=== PATIENT | male | born 1980 | race Caucasian/White ===

== ENCOUNTER → 2018-05-24 14:51 | Outpatient (CLI) | payer BC, SELFPAY ==
[2018-05-24 14:45] VITALS: BMI 20.2
--- NOTE | 2018-05-24 14:53 | RAD_ITS ---
STUDY: X-RAY CHEST REASON FOR EXAM: Male, 37 years old. Shortness of breath, cough and chest pain. TECHNIQUE: PA and lateral views of the chest. COMPARISON: Comparison is made with prior study July 05, 2015. FINDINGS: Hyperinflation. Stable scarring in both upper lobes with retraction of the antoinette bilaterally. The increased bronchovascular markings bilaterally suggestive of a Normal size heart. Normal mediastinum and antoinette. Normal visualized pulmonary arteries. Normal visualized aortic arch and descending thoracic aorta. Normal visualized thoracic spine. Normal visualized ribs, clavicles, and shoulders. There is no demonstrated abnormality of the visualized soft tissue structures of the upper abdomen. RAD/Chest PA and Lateral IMPRESSION: Stable findings consistent with upper lobe scarring bilaterally with retraction of the antoinette. Electronically Signed: Deangelo Marcano MD at 15:22 EST , Service support ,
== END ==
PROVIDERS: Referring Provider Physician Assistant Surgical; Visit Provider Physician Assistant Surgical
DX: R05 Cough (principal)
CPT/HCPCS: 71046

== ENCOUNTER 2018-10-12 23:07 | Emergency (ER) | payer BC, SELFPAY ==
[2018-05-24 14:45] VITALS: BMI 20.2
[2018-10-12 23:09] VITALS: BP 114/40; PULSE 101; RESP 18; TEMP 36.9; O2SAT 100; BMI 19.5
--- NOTE | 2018-10-12 23:25 | EKG12_ITS ---
Test Reason : CP Blood Pressure : / mmHG Vent. Rate : 092 BPM Atrial Rate : 092 BPM P-R Int : 152 ms QRS Dur : 086 ms QT Int : 342 ms P-R-T Axes : 083 089 080 degrees QTc Int : 422 ms Poor data quality, interpretation may be adversely affected Normal sinus rhythm Normal ECG Confirmed by AMBER MUÑOZ, MARY ([id number]), editor publications ROHITH BILLS ([id number] on 10/15/2018 11:57:22 AM Referred By: SVETLANA Confirmed By:MARY CLARK MD
[2018-10-12 23:33] VITALS: PULSE 88; RESP 16
[2018-10-12] MEDS: Ipratropium/Albuterol Sulfate 3 ML AMPUL.NEB INHALATION (23:33)
[2018-10-12] MEDS: Albuterol 2.5 MG/3 ML VIAL.NEB. INHALATION (23:33)
--- NOTE | 2018-10-12 23:35 | RAD_ITS ---
HISTORY: PT C/O COUGH,NIGHT SWEATS, AND CHEST PAIN WITH PAIN RADIATING DOWN RIGHT ARM EXAM: XR Chest 2 Views: COMPARISON: May 24, 2018 FINDINGS: # of images incl. paperwork: 2 Fibrotic lung disease greatest within the lung apices persists. Pulmonary hyperexpansion with possibly of lower lung pulmonary vascularity suggests obstructive lung disease and probable emphysema. Enlargement of central pulmonary artery suggest chronic pulmonary artery hypertension Heart is not enlarged. Bones are normal. Pulmonary vascularity is distinct. No effusions. RAD/Chest PA and Lateral IMPRESSION: Fibrotic lung disease greatest within the apices with pulmonary hyperexpansion suggestive of obstructive lung disease. Enlargement central pulmonary arteries consistent with pulmonary artery hypertension, likely related to chronic obstructive lung disease.. at 0018 Reported and signed by: Jamaal Prince MD Electronically Signed: Jamaal Prince MD at 0:17 EDT Tel , Service support ,
[2018-10-12 23:36] VITALS: O2SAT 96
[2018-10-12] MEDS: Aspirin 81 MG TAB.CHEW 324 MG PO (23:39)
[2018-10-12 23:59] LABS: Absolute Lymphocyte Count 0.89 X10^3/ul (0.83-4.51); Absolute Neutrophil Count 12.3 X10^3/uL (2.0-7.7); Basophil# 0.04 X10^3/uL; Basophil% 0.3 % (0-1); Eosinophil# 0.09 X10^3/uL; Eosinophils% 0.6 % (0-5); Hematocrit 41.5 % (40-54); Hemoglobin 14.3 g/dl (13.0-16.5); Lymphocyte # 0.89 X10^3/ul (4.0); Lymphocyte % 6.2 % (19-41); Mean Corp Hgb Conc 34.5 g/gl (32-36); Mean Corpuscular Hgb 30.5 pg (27.0-32.0); Mean Corpuscular Volume 88.5 fL (80-94); Mean Platelet Vol. 10.4 fl (6.2-12.0); Monocyte# 0.92 X10^3/uL; Monocyte% 6.4 % (0-10); Neutrophil # 12.31 X10^3/uL (2.7-7.7); Neutrophil % 86.4 % (47-70); Platelet Count 234 K/mm3 (150-450); RBC Distribution Width CV 12.5 % (11.6-14.6); RBC Distribution Width SD 39.8 fl (35.1-43.9); Red Blood Count 4.69 M/mm3 (4.6-6.2); White Blood Count 14.3 K/mm3 (4.4-11.0)
[2018-10-13 00:09] LABS: Anion Gap 3 (5-15); BUN 14 mg/dL (7-18); BUN/Creat Ratio 16.4 RATIO (10-20); Chloride 104 mmol/L (98-107); Creatinine, Serum 0.86 mg/dL (0.70-1.30); EST Glomerular Filtration Rate 105 mL/min (>60); Est Glom Filt Rate - Afr Amer 127 mL/min (>60); Estimated Creatinine Clearance 108.53 ml/min; Glucose 102 mg/dL (74-106); Potassium 3.5 mmol/L (3.5-5.1); Sodium Level 136 mmol/L (136-145)
[2018-10-13 00:17] LABS: POSITIVE COUNT NO; POSITIVE DIFFERENTIAL NO; POSITIVE MORPHOLOGY NO
--- NOTE | 2018-10-13 00:24 | EKG12_ITS ---
Test Reason : REPEAT EKG Blood Pressure : / mmHG Vent. Rate : 091 BPM Atrial Rate : 091 BPM P-R Int : 132 ms QRS Dur : 088 ms QT Int : 344 ms P-R-T Axes : 081 089 080 degrees QTc Int : 423 ms Normal sinus rhythm Normal ECG Confirmed by AMBER MUÑOZ, MARY ([id number]), technical editor ROHITH BILLS ([id number]) on 10/15/2018 11:56:17 AM Referred By: SVETLANA Confirmed By:MARY CLARK MD
[2018-10-13] MEDS: MethylPREDNISolone 125 MG/2 ML Vial IV (00:49)
[2018-10-13 00:51] VITALS: BP 107/72; PULSE 93; RESP 14; TEMP 36.9; O2SAT 94
--- NOTE | 2018-10-13 01:22 | ED.RN ---
PER DR. MOODY SEPSIS SCREEN CAN BE COMPLETED.
[2018-10-13 01:23] VITALS: BP 97/60; PULSE 89; RESP 24; O2SAT 94
[2018-10-13 02:07] VITALS: BP 117/66; PULSE 85; RESP 21; O2SAT 95
--- NOTE | 2018-10-13 02:44 | ED.VISSUMM ---
- ER Visit Summary Date of Service: 10/13/18 Chief Complaint: Chest pain History of Present Illness: The patient is a 38 M who presents with chest pain. This began about 1 hour ago. He describes it as throbbing. It was 8 out of 10 at home but has improved and he currently rates it as 4 out of 10. He also reports a recent URI or flulike illness. He reports chills and sweats but has not had a fever. He also complains of chest congestion, rhinorrhea, productive cough. He is had diarrhea for about 1 week. He has had some intermittent chest discomfort during this time however 1 hour ago developed more severe chest pain. It radiated to his right shoulder and his right arm felt numb. No fevers. No vomiting. He is a smoker but denies history of diabetes, hypertension, hyperlipidemia. There is no family history of coronary artery disease. He does have a history of sarcoidosis. Physical Examination: Heart rate 101 vitals otherwise normal Moist mucous membranes Heart regular rate and rhythm Patient has scattered expiratory wheezing but he is in no respiratory distress, able to speak in full sentences Alert Skin warm and dry Test Results: EKG shows sinus rhythm at a rate of 92. Labs notable for white count 14.3. Troponin is negative. Chest x-ray shows fibrotic lung disease. Repeat EKG unchanged showing normal sinus rhythm at a rate of 91. Repeat troponin remains negative. Emergency Department Course and Treatment: Patient was given albuterol and Atrovent aerosols. Work-up as above unremarkable. Patient's heart score is 2. JOSEPH risk score is 1. I feel he is low risk and that this is unlikely to be due to cardiac disease and is much more likely related to his pulmonary disease. He states he is supposed to be on prednisone but was lost to follow-up. He was given Solu-Medrol here. He will be placed on a prednisone burst. He was advised to follow-up with his primary care physician and understands to return for new or worsening symptoms. Patient agreeable to this plan. He was discharged. Treatment Plan: [] Disposition: Discharge Impression: Chest pain Sarcoidosis Bronchitis This note was generated with SamEnrico dictation software. It may contain incorrect words, spelling, and punctuation that were not noted in review of the chart prior to signing ED Disposition - Plan for ED Patient: Referrals: Care Physician,No Primary [Primary Care Provider] -
--- NOTE | 2018-10-13 02:47 | ED.DEP ---
ED Disposition - Plan for ED Patient: Instructions: Acute Bronchitis Prescriptions: predniSONE tablet 60 mg PO DAILY #15 tab Prescription Printed Referrals: Care Physician,No Primary [Primary Care Provider] -
[2018-10-13 02:52] VITALS: BP 113/75; PULSE 90; RESP 18; O2SAT 95
== END 2018-10-13 02:52 | disposition home or self-care (01) ==
PROVIDERS: Emergency Provider Emergency Medicine
DX: R07.9 Chest pain, unspecified (principal); J40 Bronchitis, not specified as acute or chronic; D86.9 Sarcoidosis, unspecified; J98.4 Other disorders of lung; R19.7 Diarrhea, unspecified; J84.10 Pulmonary fibrosis, unspecified; F17.200 Nicotine dependence, unspecified, uncomplicated
CPT/HCPCS: 71046; 80048; 83605; 84484; 85025; 93005; 94640; 99284; A4216

== ENCOUNTER 2019-10-15 11:05 | Observation (INO) | payer BC, SELFPAY ==
[2019-07-21 12:25] VITALS: BMI 19.5
[2019-10-15] VITALS (10 sets, daily range): BP systolic 103–153; BP diastolic 70–109; PULSE 75–97; RESP 10–20; TEMP 36.5–36.8; O2SAT 84–99; BMI 20.1
--- NOTE | 2019-10-15 11:39 | RAD_ITS ---
STUDY: X-RAY CHEST REASON FOR EXAM: Male, 39 years old. DYSPNEA TECHNIQUE: Single AP portable view of the chest. COMPARISON: Comparison is made with prior study dated October 12, 2018. FINDINGS: EKG electrodes are seen. Was again, there is evidence of a increased markings with areas of confluence in the upper lobes worse on the left side. There is volume loss in the upper lobes as well. There has been improvement as compared to prior study. There is no demonstrated pleural abnormality. Normal size heart. Normal mediastinum and antoinette. Normal visualized pulmonary arteries. Normal visualized aortic arch and descending thoracic aorta. Normal visualized thoracic spine. Normal visualized ribs, clavicles, and shoulders. There is no demonstrated abnormality of the visualized soft tissue structures of the upper abdomen. RAD/Chest 1 View (Portable) IMPRESSION: Persistent increased markings in the upper lobes worse on the left side suggestive of a scarring although there has been improvement as compared to prior study. Volume loss in the upper lobes. Electronically Signed: Deangelo Marcano, at 12:44 EDT , Service support ,
--- NOTE | 2019-10-15 11:41 | CT_ITS ---
STUDY: CT SOFT TISSUE NECK WITH CONTRAST REASON FOR EXAM: Male, 39 years old. INCREASING SOB,PAIN IN SHOULDER BLADE SINCE SUNDAY, PRESSURE IN THROAT RADIATION DOSAGE (If Supplied By Facility): CTDIvol = ( 16.27 ) mGy, DLP = ( 508.09 ) mGycm TECHNIQUE: The patient was scanned in a multi-detector CT scanner. High resolution transaxial imaging was performed following intravenous administration of IV 100mL Isovue-370. Sagittal and coronal images were reconstructed. Individualized dose optimization techniques were used for this CT. COMPARISON: None. FINDINGS: There is evidence of scarring in the upper lobes with cystic changes suggestive of honeycombing.. There is evidence of a small left apical pneumothorax. Bullous changes are seen in the left lung apex. There is evidence of a 1.3 cm x 1.1 cm nodular density in the lateral aspect of the right upper lobe. Normal bilateral parotid glands. Normal bilateral handstitching machine collar feller spaces. Normal bilateral parapharyngeal spaces. Normal bilateral carotid spaces. Normal bilateral sublingual and submandibular glands and spaces. Normal visualized nasopharynx. Normal retropharyngeal space. Normal perivertebral space. Normal visualized bilateral faucial tonsils. The visualized tongue, tongue base and oropharynx are normal. The visualized cervical lymph nodes (levels I-) are within normal size limits, and maintain normal morphology. There is no demonstrated solid or cystic mass lesion. There is no abnormal contrast enhancement. Normal epiglottis, bilateral vallecula and hypopharynx. The pre-epiglottic and paraglottic adipose spaces are normal. Normal visualized bilateral piriform sinuses, aryepiglottic folds, vocal cords, and arytenoid-cricoid articulations. Normal subglottic trachea. Normal bilateral lobes of the thyroid gland. Normal visualized paranasal sinuses. Normal visualized cervical spine. CT/Soft Tissue Neck WITH Contrast IMPRESSION: Fibrotic changes in the upper lobes with scarring and cystic changes suggestive of chronic scarring. Small loculated pneumothorax in the upper left hemithorax. Findings suggestive of a 1.3 cm x 1.1 cm nodular density in the lateral aspect of the right upper lobe. Electronically Signed: Deangelo Marcano, at 12:48 EDT , Service support ,
--- NOTE | 2019-10-15 11:46 | ED.VISSUMM ---
- ER Visit Summary Date of Service: 10/15/19 Chief Complaint: Shortness of breath History of Present Illness: The patient is a 39 M who presents with shortness of breath that has been getting worse over the past 5 days. Patient states it is gradually gotten worse. Patient states nothing makes it worse. Patient states it is better with rest. Patient states he feels like his throat is tightening. Patient denies any fevers or chills. Patient denies any cough. Patient denies any chest pain. Patient admits to nausea but denies any vomiting. Patient states he has been using his inhaler with minimal relief. Physical Examination: Vital signs are stable. Patient is afebrile. Patient is in no acute distress. Oral mucosa is pink and moist. Oropharynx is clear. Airway is patent. Neck is supple. Trachea is midline. There is no JVD. Heart was regular rate and rhythm. Lungs showed diffuse expiratory wheezing. There is good respiratory effort noted. Abdomen is soft. Bowel sounds are normal. There is no tenderness. Cranial nerves II through XII are intact. There are no focal motor or sensory deficits. Test Results: Chest x-ray was obtained. There is a small loculated pneumothorax in the left upper lobe. A CT scan of the soft tissue neck was obtained since the patient was having pressure in his throat. There is no evidence of epiglottitis or soft tissue swelling. The apical pneumothorax was noted. CT scan of the chest was obtained. There is a 10 to 15% pneumothorax in the left upper lobe. There is also a small loculated pneumothorax in the left base. These were all interpreted by the radiologist and reviewed by myself. Emergency Department Course and Treatment: Patient was given a dose of morphine here. Patient was given a DuoNeb aerosol. Patient was placed on oxygen. Case was discussed with Dr. Dariel Willingham, general surgeon on-call. He will be in to evaluate the patient. Patient was advised and understands and is agreeable with the plan. All questions were answered. Disposition: Admit to hospital to the service of Dr. Willingham Impression: 1. Left pneumothorax This note was generated with Apmetrixation software. It may contain incorrect words, spelling, and punctuation that were not noted in review of the chart prior to signing ED Disposition - Plan for ED Patient: Disposition: Acute Care Hospital [facility] Diagnosis: Pneumothorax, left Referrals: Care Physician,No Primary [Primary Care Provider] -
[2019-10-15] MEDS: 0.9% Normal Saline 1,000 ML 1000 ML IV (11:49)
--- NOTE | 2019-10-15 11:53 | EKG12_ITS ---
Test Reason : SOB Blood Pressure : / mmHG Vent. Rate : 080 BPM Atrial Rate : 080 BPM P-R Int : 168 ms QRS Dur : 078 ms QT Int : 362 ms P-R-T Axes : 082 073 086 degrees QTc Int : 417 ms Sinus rhythm with marked sinus arrhythmia Low voltage QRS Cannot rule out Anterior infarct , age undetermined Abnormal ECG Confirmed by BARBIE LAU ([id number]), metropolitan editor ABRAHAM GEORGE ([id number]) on 10/20/2019 2:13:28 PM Referred By: SPRING/ELLEN Confirmed By:BARBIE LAU
[2019-10-15] MEDS: Ipratropium/Albuterol Sulfate 3 ML AMPUL.NEB INHALATION (11:55)
[2019-10-15 12:07] LABS: Absolute Neutrophil Count 6.4 X10^3/uL (2.0-7.7); Basophil# 0.09 X10^3/uL; Basophil% 0.9 % (0-1); Eosinophils% 5.2 % (0-5); Hematocrit 49.6 % (40-54); Hemoglobin 16.5 g/dL (13.0-16.5); Lymphocyte % 21.8 % (19-41); Mean Corp Hgb Conc 33.3 g/dL (32-36); Mean Corpuscular Hgb 31.4 pg (27.0-32.0); Mean Corpuscular Volume 94.3 fL (80-94); Mean Platelet Vol. 10.6 fl (6.2-12.0); Monocyte# 0.52 X10^3/uL; Monocyte% 5.4 % (0-10); NRBC Flagged by Analyzer 0 % (0-5); Neutrophil # 6.39 X10^3/uL (2.7-7.7); Neutrophil % 66.5 % (47-70); Platelet Count 313 K/mm3 (150-450); RBC Distribution Width CV 11.9 % (11.6-14.6); RBC Distribution Width SD 40.8 fl (35.1-43.9); Red Blood Count 5.26 M/mm3 (4.6-6.2); White Blood Count 9.6 K/mm3 (4.4-11.0)
[2019-10-15 12:17] LABS: Anion Gap 3 (5-15); BUN 8 mg/dL (7-18); BUN/Creat Ratio 9.4 RATIO (10-20); Calcium,Total 9.2 mg/dL (8.5-10.1); Chloride 104 mmol/L (98-107); Creatinine, Serum 0.85 mg/dL (0.70-1.30); EST Glomerular Filtration Rate 105 mL/min (>60); Est Glom Filt Rate - Afr Amer 128 mL/min (>60); Estimated Creatinine Clearance 111.94 ml/min; Glucose 105 mg/dL (74-106); Potassium 4.2 mmol/L (3.5-5.1); Sodium Level 139 mmol/L (136-145)
--- NOTE | 2019-10-15 12:39 | CT_ITS ---
STUDY: CT CHEST WITHOUT CONTRAST REASON FOR EXAM: Male, 39 years old. PNEUMOTHORAX, increasing SOB since Sunday RADIATION DOSAGE (If Supplied By Facility): CTDIvol = ( 7.77 ) mGy, DLP = ( 339.95 ) mGycm TECHNIQUE: Transaxial imaging was performed without the administration of intravenous contrast material. Multiplanar coronal and sagittal images were reformatted. Individualized dose optimization techniques were used for this CT. COMPARISON: Comparison is made with prior CT scan of the cervical region done earlier. FINDINGS: There is evidence of a left 10-15% pneumothorax. There is also evidence of a 3.8 cm x 3.1 cm bulla in the medial aspect of the left upper lobe. Loculated pneumothorax is also seen at the left lung base measuring 9.8 cm x 8.4 cm. There is evidence of extensive scarring in the upper lobes with areas of the bullous changes and bronchiectasis. There is evidence of a 1.8 cm x 1.2 cm dictated density anterior right upper lobe. This may represent a focal area of scarring although correlation with a PET scan is recommended. A similar appearing spiculated density is seen in the posterior aspect of the right upper lobe measuring 2.3 cm x 1.9 cm. There is no demonstrated pleural abnormality. Normal heart and pericardium. Normal mediastinum. Normal hilar regions. Normal unenhanced pulmonary arteries. Normal aorta arch and descending thoracic aorta. Normal osseous structures. There is no demonstrated abnormality of the visualized upper abdomen. CT/Chest without Contrast IMPRESSION: Left 10-50% pneumothorax with a loculation in the left lower lobe. Spiculated nodules in the right upper and left upper lobe as described. Correlation with PET scan is recommended. Extensive scarring in both upper lobes with bullous formation as well as bronchiectasis. Electronically Signed: Deangelo Marcano, at 13:25 EDT , Service support ,
[2019-10-15] MEDS: Morphine 4 MG/ML Syringe IV ×2 (12:54→18:04)
--- NOTE | 2019-10-15 13:45 | ED.VIS.CHEST ---
History of Present Illness Chief Complaint: Shortness of Breath Informant: Patient Past Medical History - Allergies and Home Meds Allergies/Adverse Reactions: Allergies acetaminophen [From Percocet] Allergy (Verified 10/15/19 11:05) Hives oxycodone HCl [From Percocet] Allergy (Verified 10/15/19 11:05) Hives Primary Care Physician: Care Physician,No Primary [Primary Care Provider] - Smoking Status: Current every day smoker Physical Exam Vital Signs/Narrative: Vital Signs Temp Pulse Resp BP Pulse Ox 10/15/19 13:10 85 10 L 134/109 H 98 10/15/19 12:40 90 16 132/92 H 97 10/15/19 11:57 90 12 96 10/15/19 11:06 97.7 F L 86 17 153/89 H 97 ED Disposition - Plan for ED Patient: Referrals: Care Physician,No Primary [Primary Care Provider] -
--- NOTE | 2019-10-15 15:12 | NURSING ---
DR Meme YU WILL BE IN LATER TODAY
--- NOTE | 2019-10-15 15:46 | NURSING ---
DR Meme YU IN ROOM
--- NOTE | 2019-10-15 16:50 | RAD_ITS ---
STUDY: X-RAY CHEST REASON FOR EXAM: Male, 39 years old. CHEST TUBE PLACEMENT TECHNIQUE: 1 view 4:51 PM COMPARISON: Prior chest radiograph of October 15, 2019 at 12:[address] exam of the same day. Prior chest radiographs of May 24, 2018 and July 05, 2015 FINDINGS: A small caliber chest tube terminates in the mid left thorax with a reduction in the pneumothorax which now measures 6 mm from the visceral to the parietal pleura in the axillary region of the left upper lung zone. Negative for pleural effusion. Stable chronic upper lung zone changes with hilar and upper lobe retraction. Normal size heart. Normal mediastinum and antoinette. Normal visualized pulmonary arteries. Normal visualized aortic arch and descending thoracic aorta. Normal visualized thoracic spine. Normal visualized ribs, clavicles, and shoulders. There is no demonstrated abnormality of the visualized soft tissue structures of the upper abdomen. RAD/Chest 1 View (Portable) IMPRESSION: Small caliber chest tube terminates in the mid left thorax with a substantial reduction in the pneumothorax. A minimal pneumothorax remains. Stable underlying chronic lung changes. Electronically Signed: Gracie Rios MD at 17:06 EDT , Service support ,
--- NOTE | 2019-10-15 17:07 | HP.PCM_ITS ---
Problem List (1) Pneumothorax, left Status: Acute History of Present Illness Date of Admission: 10/15/19 The patient is a 39 year old M scented to the emergency room with a 3 to 4-day history of shortness of breath. I was asked to assume care. He has evidence of emphysematous blebs bilaterally but has a left pneumothorax post apically and subpulmonic. He had a chest x-ray and a CT scan. There is area of scarring in the apical lobe in the left lower lobe was partially still inflated. I had asked for assistance from radiology for guidance and was instructed that privileges were not available. The patient does not have a primary care doctor. He occasionally sees Dr. Ari bello for his pulmonology needs but with a COVID-19 pandemic he has not been in follow-up. Was supposed to be on prednisone for treatment of his sarcoidosis. He has not been taking that for at least 3 to 4 months. He is a long-term cigarette smoker up to 2 packs/day. Currently he states he is smoking 1 to 3 cigarettes daily Past Medical History Medical History: Medical History (Last Reviewed 07/21/19 @ 12:26 by Luz Roa) Back pain M54.9 Chest pain R07.9 Migraines G43.909 SOB (shortness of breath) R06.02 Sarcoidosis D86.9 Allergies acetaminophen [From Percocet] Allergy (Verified 10/15/19 11:05) Hives oxycodone HCl [From Percocet] Allergy (Verified 10/15/19 11:05) Hives Home Medications: Ambulatory Orders Medication Instructions Recorded Ipratropium/Albuterol Respimat 1 puff INHALATION PRN PRN 10/15/19 [Combivent Respimat Inhal [place]] Surgical History: - - Previous left clavicular fracture ORIF Smoking Status: Current every day smoker Review of Systems Constitutional: Denies: Chills, Fever, Night Sweats Cardiovascular: Reports: Chest Pain Respiratory: Reports: Shortness of Breath. Denies: Cough Gastrointestinal: Denies: Abdominal Pain, Melena Psychiatric: Reports: Anxiety Endocrine: Denies: Change in Body Habitus Hematologic/ Lymphatic: Denies: Adenopathy VTE Information - Inpt Only VTE Present on Admission: No Patient Problems: Active and Suspected Problems (Last Reviewed 07/21/19 @ 12:26 by Luz Roa) Pneumothorax, left (Acute) - Physical Exam Vitals/I&O's: Vital Signs Temp Pulse Resp BP Pulse Ox 97.7 F L 97 16 116/90 H 99 10/15/19 11:06 10/15/19 16:00 10/15/19 16:00 10/15/19 16:00 10/15/19 16:00 Oxygen Flow Rate (L/min) 2 Oxygen Delivery Method Nasal Cannula Weight: 152 lb 8.958 oz Body Mass Index (BMI) 20.1 Intake and Output for Last 24 Hours 10/13/19 10/14/19 10/15/19 23:59 23:59 23:59 Intake Total 1000 / 999 Balance 1000 / 999 General: Alert, Oriented x3, Cooperative, No apparent distress HEENT: Atraumatic Oral: Moist Mucosa Neck: Trachea Midline Lungs: Clear to auscultation, - - Poor respiratory excursion bilaterally. Somewhat distant breath sounds bilaterally. Markedly increased anterior posterior diameter of the chest Cardiovascular: Regular rate, Regular Rhythm Abdomen: Bowel Sounds Present, Soft, Non Tender, Non-Distended Extremities: No Calf Tenderness Skin: No rashes Neurological: - - Normal cognition Psych/Mental Status: Normal Affect, Anxious Laboratory Results 10/15/19 11:08: WBC 9.6, RBC 5.26, Hgb 16.5, Hct 49.6, MCV 94.3 H, MCH 31.4, MCHC 33.3, RDW Std Deviation 40.8, RDW Coeff of Sue 11.9, Plt Count 313, MPV 10.6, Immature Gran % (Auto) 0.200, Neut % (Auto) 66.5, Lymph % (Auto) 21.8, Howard % (Auto) 5.4, Eos % (Auto) 5.2 H, Baso % (Auto) 0.9, Absolute Neuts (auto) 6.4, Absolute Lymphs (auto) 2.10, Nucleated RBC % 0 10/15/19 11:08: Sodium 139, Potassium 4.2, Chloride 104, Carbon Dioxide 32.0, Anion Gap 3 L, BUN 8, Creatinine 0.85, Estim Creat Clear Calc 111.94, Est GFR (MDRD) Af Amer 128, Est GFR (MDRD) Non-Af 105, BUN/Creatinine Ratio 9.4 L, Glucose 105, Calcium 9.2 Current Medications Acetaminophen (Tylenol) 650 mg PO Q6H PRN PRN PRN Reason: Pain Score 1-10/10 Morphine Sulfate () 1 - 2 mg IV Q1H PRN PRN PRN Reason: Pain Score 1-10/10 Non-Formulary Medication (Ipratropium/Albuterol Respimat) 1 puff inhalation PRN PRN PRN Reason: SOB &/OR WHEEZING Ondansetron HCl (Zofran) 4 mg IV Q8H PRN PRN PRN Reason: NAUSEA Assessment/Plan All Active Problems (Last Reviewed 07/21/19 @ 12:26 by Luz Roa) Pneumothorax, left (Acute) Acute bronchitis (Acute) Hx of sarcoidosis (Acute) Significant changes of COPD with emphysematous blebs bilaterally. Left apical pneumothorax with apical adhesions and subpulmonic pneumothorax. Symptomatic patient. I recommend to him tube thoracostomy. The patient is additionally aware of the technique, benefit, risk, alternatives. He is aware that definitive treatment may be required in the form of thoracoscopy with bleb resection and pleurodesis. He is aware that referral to a tertiary center might be required for this. He has had an opportunity to ask and have questions answered. I recommended that in the emergency room I proceed with tube placement. He concurred. Subsequently plan admission for ongoing observation Because he has not been taking his prednisone for 3 to 4 months at this moment I will not immediately reinitiate it. The patient will definitively need to follow-up with pulmonology or primary care at discharge. Dariel Willingham M.D., F.A.C.S. Procedure Criteria COVID Risk Discussion: The patient is aware that emergency placement of a left tube thoracostomy is indicated. He is aware of the COVID-19 pandemic. He is aware of a low local incidence. He is aware that I am definitively recommending urgently proceeding for his wellbeing. Dariel Willingham M.D., F.A.C.S.
--- NOTE | 2019-10-15 17:13 | PCM.OPRPT ---
Problem List (1) Pneumothorax, left Status: Acute Report of Operation Date of Procedure: 10/15/19 Pre-Operative Diagnosis: Spontaneous left pneumothorax with multiple blebs Post-Operative Diagnosis: Same Surgery/Procedure Performed:: Ultrasound-guided left tube thoracostomy with Arrow kit pneumothorax tube Description of Surgical Findings:: Timeout and informed consent was obtained. In the emergency room I had the patient in a 45 degree head of bed elevation. I performed ultrasound of both anterior lateral chest. I add identified a site left anterior axillary line in the inferior portion of the axilla where I thought that there was no return reflection from the lung. I marked that area. I then cleansed the skin with chlorhexidine. I used 1% lidocaine as a local anesthetic and a total of 10 cc was used. Using a 25-gauge needle I carefully anesthetized the skin and then over the rib space carefully used a 25-gauge needle until I was able to feel an poke through the pleura immediately got an air return. I continue to inject local at that spot. I made a small transverse incision and then used the needle catheter device as a unit and carefully inserted it over the rib space into the pleura immediately getting air not advancing needle any further but carefully advancing the catheter. I then secured the catheter to the skin with 2-0 silk. It was then connected to a thoraco-seal device with 20 cm of suction under water. He tolerated the procedure well. Vaseline gauze followed by 4 x 4's followed by secured tape dressing was applied. The connections were securely taped. He was immediately relieved to some of the shortness of breath. He tolerated the procedure very well. A stat portable chest x-ray is ordered. He will subsequently be admitted for ongoing care. Specimens none. Drains the chest tube. Blood loss minimal. Dariel Willingham M.D., F.A.C.S. Type of Anesthesia:: Local
--- NOTE | 2019-10-15 17:17 | PCM.PN.BLA ---
Progress Note Small caliber left chest tube is in adequate position with majority resolution of pneumothorax. I will except the positioning of the tube as no iatrogenic trauma has occurred. We will keep it to 20 cm of suction Dariel Willingham M.D., F.A.C.S. STROKE Vital Signs/Narrative: Vital Signs Pulse Resp BP Pulse Ox 10/15/19 16:00 97 16 116/90 H 99 10/15/19 15:29 81 15 116/84 H 99 10/15/19 14:52 76 16 107/81 H 98
--- NOTE | 2019-10-15 17:39 | NURSING ---
MED SURG OBS R CEBUL LEFT PNEUMONTHORAX
[2019-10-15] MEDS: 0.9% Saline Lock 10 ML Syringe IV (19:46)
[2019-10-15] MEDS: Ondansetron 4 MG/2 ML Vial IV (19:46)
[2019-10-16] VITALS (10 sets, daily range): BP systolic 92–140; BP diastolic 56–86; PULSE 84–97; RESP 12–24; TEMP 36.7–37.2; O2SAT 92–98
[2019-10-16] MEDS: Ipratropium/Albuterol Sulfate 3 ML AMPUL.NEB INHALATION ×3 (00:15→14:08)
--- NOTE | 2019-10-16 00:29 | NURSING ---
At approximately 11:45pm patient called out, this RN went into patients room and patient was found to be sitting at the side fo the bed without his oxygen on, vomiting. Oxygen was reapplied, patient found to have labored pursed lip breathing. This RN called charge authorizer and this RN began checking VS. see VS. Chest tube stable, no crepitis, anterior and posterior lung sounds noted as being wheezy. Once 02 was reapplied, patients respirations began to ease and no longer having pursed lips. During assessment patient stated it all started approximately 10 minutes before he called out, states he woke up feeling very warm and had a headache, developed nausea and started vomiting. Respiratory called at this time to give breathing treatment. This RN left room for a few minutes and once this account underwriter returned patient found to be vomiting again. Per patient he states it feels like gasoline. Patient also stated he can still taste those vegetables. This RN checked EMAR and patient is unable to have anything. This RN then paged Dr. Willingham, at this time MD stated to not give IV morphine, only stick with tylenol if needed, and at this time will not order anymore antiemetics. This RN updated patient. Will continue to monitor.
--- NOTE | 2019-10-16 04:38 | NURSING ---
Patient up in hallway and ambulated with this RN.
--- NOTE | 2019-10-16 05:00 | RAD_ITS ---
STUDY: X-RAY CHEST REASON FOR EXAM: Male, 39 years old patient presents for follow-up of left-sided pneumothorax. TECHNIQUE: Single AP portable view of the chest. COMPARISON: October 15, 2019. FINDINGS: Small bore left-sided thoracostomy tube is present in the upper left chest. The lungs are hyperexpanded. There is interstitial thickening present in both lung apices, left larger than right. There maybe some bronchiectasis within the upper lobes as well. There is a minimal left apical pneumothorax. Similar to previous study. Normal size heart. Normal mediastinum and antoinette. There is prominence of the pulmonary hilar arteries without peripheral pulmonary vascular congestion, suggesting pulmonary hypertension. There is atherosclerotic calcification of the aortic arch with tortuosity. Normal visualized thoracic spine. Normal visualized ribs, clavicles, and shoulders. There is no demonstrated abnormality of the visualized soft tissue structures of the upper abdomen. RAD/Chest 1 View IMPRESSION: Unchanged appearance of the chest with minimal left apical pneumothorax. Electronically Signed: Marlin Hua MD at 5:15 EDT , Service support ,
--- NOTE | 2019-10-16 05:54 | PCM.PN.SRG ---
Patient Problems: Active and Suspected Problems (Last Reviewed 07/21/19 @ 12:26 by Luz Roa) Pneumothorax, left (Acute) Subjective: Patient is feeling much better. He did have nausea and vomiting last night. Likely related to morphine that he was administered. He is having some back discomfort now but he claims that that is likely chronic. His breathing is improved. - Physical Exam Vitals/I&O's: Vital Signs Temp Pulse Resp BP Pulse Ox 98.1 F 97 18 92/56 L 98 10/16/19 04:39 10/16/19 05:00 10/16/19 05:00 10/16/19 04:39 10/16/19 04:39 Oxygen Flow Rate (L/min) 2 Oxygen Delivery Method Nasal Cannula Weight: 152 lb 8.958 oz Body Mass Index (BMI) 20.1 Intake and Output for Last 24 Hours 10/14/19 10/15/19 10/16/19 23:59 23:59 23:59 Intake Total 1000 / 1000 Output Total 465 / 465 250 / 250 Balance 535 / 535 -250 / -250 Lungs: Clear to auscultation Laboratory Results 10/15/19 11:08: WBC 9.6, RBC 5.26, Hgb 16.5, Hct 49.6, MCV 94.3 H, MCH 31.4, MCHC 33.3, RDW Std Deviation 40.8, RDW Coeff of Sue 11.9, Plt Count 313, MPV 10.6, Immature Gran % (Auto) 0.200, Neut % (Auto) 66.5, Lymph % (Auto) 21.8, [place] % (Auto) 5.4, Eos % (Auto) 5.2 H, Baso % (Auto) 0.9, Absolute Neuts (auto) 6.4, Absolute Lymphs (auto) 2.10, Nucleated RBC % 0 10/15/19 11:08: Sodium 139, Potassium 4.2, Chloride 104, Carbon Dioxide 32.0, Anion Gap 3 L, BUN 8, Creatinine 0.85, Estim Creat Clear Calc 111.94, Est GFR (MDRD) Af Amer 128, Est GFR (MDRD) Non-Af 105, BUN/Creatinine Ratio 9.4 L, Glucose 105, Calcium 9.2 Current Medications Acetaminophen (Tylenol) 650 mg PO Q6H PRN PRN PRN Reason: Pain Score 1-10/10 Albuterol/Ipratropium (Duoneb) 3 ml INHALATION Q6H PRN PRN PRN Reason: SOB/WHEEZING Last Admin: 10/16/19 05:00 Dose: 3 ml Documented by: Morphine Sulfate () 1 - 2 mg IV Q1H PRN PRN PRN Reason: Pain Score 1-10/10 Ondansetron HCl (Zofran) 4 mg IV Q8H PRN PRN PRN Reason: NAUSEA Last Admin: 10/15/19 19:46 Dose: 4 mg Documented by: Sodium Chloride () 10 - 40 ml IV UD PRN PRN Reason: SALINE FLUSH Last Admin: 10/15/19 19:46 Dose: 20 ml Documented by: Medical Necessity - Tobacco Use Smoking Status: Current every day smoker Tobacco Use: Cigarettes Assessment/Plan All Active Problems (Last Reviewed 07/21/19 @ 12:26 by Luz Roa) Pneumothorax, left (Acute) Acute bronchitis (Acute) Hx of sarcoidosis (Acute) I am not seeing any air leak on the chest tube. Upon release of the suction the water level was floating high consistent with no leak. Chest x-ray is reviewed by me and I do not see a pneumothorax I have taken the chest tube off of suction. I will observe on waterseal and repeat a chest x-ray. I anticipate removal of chest tube later today and discharge. I have extensively discussed with the patient my recommendations that he see his forensic toxicologist Dr Bridges. I believe that the patient is at increased risk for recurrent spontaneous pneumothorax due to his emphysema and bleb disease. He may be a better candidate for thorascopic resection of his apical blebs. Dariel Willingham M.D., F.A.C.S.
--- NOTE | 2019-10-16 05:57 | PCM.DC.SUM ---
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 He was detected to have significant emphysematous bleb disease with a pneumothorax on the left. I was asked to assume care. I placed a small caliber chest tube on the left after ultrasound inspection. I placed him to 20 cm of underwater suction. He was observed overnight. Serial leak appeared to cease. Chest tube was removed follow-up x-ray demonstrated absence of pneumothorax. He is discharged with strong instructions for him to follow-up with his polish compounder Dr Bridges.. The patient has significant emphysema and blebs and is at high risk for recurrent spontaneous pneumothorax. He might be a candidate for thoracic surgery consultation with possible thorascopic bleb resection but he would need to have his pulmonary function evaluated. Secondarily the patient has a history of sarcoid and he is not been on his steroid medications for at least the past 3 to 4 months. Patient Problems: Active and Suspected Problems (Last Reviewed 07/21/19 @ 12:26 by Luz Roa) Pneumothorax, left (Acute) - Physical Exam Vitals/I&O's: Vital Signs Temp Pulse Resp BP Pulse Ox 98.1 F 97 18 92/56 L 98 10/16/19 04:39 10/16/19 05:00 10/16/19 05:00 10/16/19 04:39 10/16/19 04:39 Oxygen Flow Rate (L/min) 2 Oxygen Delivery Method Nasal Cannula Weight: 152 lb 8.958 oz Body Mass Index (BMI) 20.1 Intake and Output for Last 24 Hours 10/14/19 10/15/19 10/16/19 23:59 23:59 23:59 Intake Total 1000 / 1000 Output Total 465 / 465 250 / 250 Balance 535 / 535 -250 / -250 Laboratory Results 10/15/19 11:08: WBC 9.6, RBC 5.26, Hgb 16.5, Hct 49.6, MCV 94.3 H, MCH 31.4, MCHC 33.3, RDW Std Deviation 40.8, RDW Coeff of Sue 11.9, Plt Count 313, MPV 10.6, Immature Gran % (Auto) 0.200, Neut % (Auto) 66.5, Lymph % (Auto) 21.8, Dare % (Auto) 5.4, Eos % (Auto) 5.2 H, Baso % (Auto) 0.9, Absolute Neuts (auto) 6.4, Absolute Lymphs (auto) 2.10, Nucleated RBC % 0 10/15/19 11:08: Sodium 139, Potassium 4.2, Chloride 104, Carbon Dioxide 32.0, Anion Gap 3 L, BUN 8, Creatinine 0.85, Estim Creat Clear Calc 111.94, Est GFR (MDRD) Af Amer 128, Est GFR (MDRD) Non-Af 105, BUN/Creatinine Ratio 9.4 L, Glucose 105, Calcium 9.2 Current Medications Acetaminophen (Tylenol) 650 mg PO Q6H PRN PRN PRN Reason: Pain Score 1-10/10 Albuterol/Ipratropium (Duoneb) 3 ml INHALATION Q6H PRN PRN PRN Reason: SOB/WHEEZING Last Admin: 10/16/19 05:00 Dose: 3 ml Documented by: Morphine Sulfate () 1 - 2 mg IV Q1H PRN PRN PRN Reason: Pain Score 1-10/10 Ondansetron HCl (Zofran) 4 mg IV Q8H PRN PRN PRN Reason: NAUSEA Last Admin: 10/15/19 19:46 Dose: 4 mg Documented by: Sodium Chloride () 10 - 40 ml IV UD PRN PRN Reason: SALINE FLUSH Last Admin: 10/15/19 19:46 Dose: 20 ml Documented by: Discharge Diet: No Restrictions Home Medications: Medications to take at Discharge Ipratropium/Albuterol Respimat [Combivent Respimat Inhal [place]] 1 puff INHALATION PRN PRN 10/15/19 Primary Care Physician: Care Physician,No Primary [Primary Care Provider] - Medical Necessity - Tobacco Use Smoking Status: Current every day smoker Tobacco Use: Cigarettes Meaningful Use Info Meaningful Use Diagnoses (Choose all that apply): None applicable
--- NOTE | 2019-10-16 06:01 | DCINST_ITS ---
Discharge Diet: No Restrictions Discharge Activity: May Not Drive - for 1-2 days, - - Do not drive, work heavy equipment or sign legal documents for 24 hours. May shower in (days): 1 - with the bandage in place. Additional Activity Instructions:: Please keep your left chest tube site dr karishma clean and dry today. You may remove the dressing tomorrow and shower. You may then place a Band-Aid over the small area until healed. Call your doctor if your incision/area has: Continuous Slow Oozing, Sudden Increased Bleeding, Increased Pain/ Swelling, Increased Redness, Foul Smelling Discharge Call your doctor if you observe: Fever of 101 or Higher Suture Line Care: Avoid Pulling/Pushing, Avoid Pinching/Bending Allergies/Adverse Reactions: Allergies acetaminophen [From Percocet] Allergy (Verified 10/15/19 11:05) Hives oxycodone HCl [From Percocet] Allergy (Verified 10/15/19 11:05) Hives Medications to take at Discharge Ipratropium/Albuterol Respimat [Combivent Respimat Inhal [place]] 1 puff INHALATION PRN PRN 10/15/19 Primary Care Physician: James Bridges MD [NON-STAFF] - Please follow up with your Primary Care Physician in: Please follow-up in 1 week Test Results: Test results from this visit will be discussed in further detail at your follow- up appointment, if applicable. Please Follow Up With: Dariel Willingham MD - Please call [phone] to schedule an appointment. When: You may contact us for any difficulties
--- NOTE | 2019-10-16 09:19 | RAD_ITS ---
STUDY: X-RAY CHEST REASON FOR EXAM: Male, 39 years old. LEFT PNEUMOTHORAX TECHNIQUE: Single AP portable view of the chest. COMPARISON: Comparison is made with prior examination dated October 16, 2019 4:45 AM. FINDINGS: A small caliber chest tube is once again seen in the left upper thorax. No significant pneumothorax is seen at this time. Stable scarring at the lung apices worse in the left upper lobe. There is no demonstrated pleural abnormality. Normal size heart. Normal mediastinum and antoinette. Normal visualized pulmonary arteries. Normal visualized aortic arch and descending thoracic aorta. Normal visualized thoracic spine. Normal visualized ribs, clavicles, and shoulders. There is no demonstrated abnormality of the visualized soft tissue structures of the upper abdomen. RAD/Chest 1 View IMPRESSION: No evidence of pneumothorax at this time. Electronically Signed: Deangelo Marcano, at 9:45 EDT , Service support ,
--- NOTE | 2019-10-16 11:13 | PCM.PN.BLA ---
Progress Note Patient was supine in bed. Patient's tape was removed. Betadine was used around the suture and tubing area. Suture was trimmed. Patient instructed to blow out. Left cheat tube was pulled. Vaseline gauze and additional dry gauze was applied to the opening where the tube was removed followed by skin prep and additional tape. Patient tolerated the procedure well. CXR will be obtained in 4 hours. STROKE Vital Signs/Narrative: Vital Signs Temp Pulse Resp BP Pulse Ox 10/16/19 08:31 98.6 F 84 16 114/63 93 10/16/19 08:23 18 92 10/16/19 07:41 96 Inpatient E&M: 98091 Subs Hosp L1 - No charge
--- NOTE | 2019-10-16 11:14 | CASEMGMT ---
ANGELA HARDY NOTE: Pt provided w/list of local PCP's. Pt voices appreciation. He denies having any discharge needs/concerns. He is aware of need to make an appt w/Dr Reyes for follow-up. Sheron LOPEZ RN CM
--- NOTE | 2019-10-16 15:25 | RAD_ITS ---
STUDY: X-RAY CHEST REASON FOR EXAM: Male, 39 years old. post tube removal for pneumothorax TECHNIQUE: 1 view COMPARISON: Prior chest radiograph of October 16, 2019 FINDINGS: The left chest tube has been removed entirely with no residual pneumothorax. Left lung completely reexpanded. Stable chronic lung changes. Normal size heart. Normal mediastinum and antoinette. Normal visualized pulmonary arteries. Normal visualized aortic arch and descending thoracic aorta. Normal visualized thoracic spine. Normal visualized ribs, clavicles, and shoulders. There is no demonstrated abnormality of the visualized soft tissue structures of the upper abdomen. RAD/Chest 1 View (Portable) IMPRESSION: Left chest tube removed entirely with resolution of the left pneumothorax. Underlying stable chronic lung changes. Electronically Signed: Gracie Rios MD at 15:51 EDT , Service support ,
--- NOTE | 2019-10-16 17:10 | CHAPLAIN ---
Type of Pastoral Visit _x__ Initial Visit ___ Follow-up Visit ___ On-call Visit ___ General Patient Visit ___ Spiritual Assessment ___ Family Conference ___ Bereavement ___ Rapid Response ___ Code Blue ___ Other (describe below) Pastoral Care Referral From _x__ Patient ___ Family ___ Nurse ___ Physician ___ University Librarian ___ [address] Reporter ___ Other (describe below) Sacrament/Intervention _x__ Active listening ___ Anointing ___ Orthodox ___ Bereavement ___ Communion _x__ Wendy exploration ___ _x__ Life review _x__ Prayer ___ Reconciliation ___ Sacrament of Sick _x__ Supportive presence ___ Wedding ___ Other (describe below) Pastoral Comments found patient sitting in chair and receiving final moments of breathing treatment; 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 willing to talk; pt states that he has some not good news and that when told he had probably an anxiety attack and had become unsettled until this morning when he was able to talk with family and hear further information from doctor; pt states he is doing better now but would like to have support for spiritual needs and emotional care; pt gives some life history, concerns about his future and that of his children; pt states he has fantastic family support from father, brother, and extended family; pt comments about 'life lessons' and 'choices on living from now on' and seeking help with connecting to God'; pt does have a adventism connection and a director of coding that he feels comfortable in talking with about these things in the future; gave time and presence; prayer welcomed; future visits would be welcomed by patient
== END 2019-10-16 17:07 | disposition home or self-care (01) ==
LOC: ED 17:37 → MS3 10-16 07:27
PROVIDERS: Admitting Provider Surgery; Emergency Provider Emergency Medicine; Visit Provider Surgery
DX: J93.83 Other pneumothorax (principal); F17.210 Nicotine dependence, cigarettes, uncomplicated; D86.9 Sarcoidosis, unspecified; R94.31 Abnormal electrocardiogram [ECG] [EKG]; J44.9 Chronic obstructive pulmonary disease, unspecified
CPT/HCPCS: 32551; 70491; 71045; 71250; 80048; 85025; 93005; 94640; 96374; 96375; 96376; 99218; 99251; 99285; 99406; J7030; Q9967; A4216; G0378; G0463; J2405

== ENCOUNTER 2020-05-17 08:30 | Emergency (ER) | payer BC, SELFPAY ==
[2019-10-29 15:22] VITALS: BMI 20.1
[2020-05-17 08:31] VITALS: BP 145/75; PULSE 82; RESP 17; TEMP 36.7; O2SAT 97; BMI 24.3
--- NOTE | 2020-05-17 08:43 | EKG12_ITS ---
Test Reason : SOB Blood Pressure : / mmHG Vent. Rate : 070 BPM Atrial Rate : 070 BPM P-R Int : 150 ms QRS Dur : 084 ms QT Int : 352 ms P-R-T Axes : 069 085 081 degrees QTc Int : 380 ms Normal sinus rhythm Early repolarization Normal ECG Confirmed by PETRA MUÑOZ, SUDHAKAR ([id number]), writer editor ABRAHAM GEORGE ([id number]) on 05/19/2020 1:28:21 PM Referred By: SETPHANIE Confirmed By:SUDHAKAR LAMBERT MD
--- NOTE | 2020-05-17 08:45 | ED.DCSUM_ITS ---
- ER Visit Summary Date of Service: 05/17/20 Chief Complaint: Shortness of breath History of Present Illness: The patient is a 39 M presenting with cough and shortness of breath. Patient states he has had a cough for several days. He states it is occasionally productive of sputum. He developed shortness of breath a few days ago. He has chills with no fever. He has chest pain with deep inspiration. He has had mild diarrhea. Denies body aches. Denies loss of sense of taste or smell. Denies recent exposure to Covid. Physical Examination: Vitals are stable. Patient is afebrile. Alert no acute distress. HEENT exam is unremarkable. Neck is supple. Lungs are expiratory wheezing bilaterally. Heart is regular rate and rhythm. Abdomen is soft nontender nondistended. Extremities are unremarkable. Skin is warm and dry. No focal neurologic deficit. Remainder of exam is unremarkable. Emergency Department Course and Treatment: EKG is sinus rhythm rate of 70 with no acute ischemic changes. CBC, chemistries unremarkable. D-dimer negative. Troponin negative. Chest x-ray read by myself and radiology stable examination. Patient was given albuterol, Atrovent aerosols. Covid is negative. Pulse ox with ambulation is 96% on room air. Patient has improvement of his symptoms on reevaluation. He is given prescription for prednisone. He is advised to follow-up with his accounts receivable executive. Advised to return to ED for worsening co mplaints. Disposition: Discharge home Impression: Dyspnea, history of sarcoidosis This note was generated with [employer] dictation software. It may contain incorrect words, spelling, and punctuation that were not noted in review of the chart prior to signing ED Disposition - Plan for ED Patient: Instructions: Pulmonary Sarcoidosis Prescriptions: Prednisone [Deltasone] 40 mg PO DAILY #10 tab Prescription Printed Referrals: Pedro Luis Augustine MD [STAFF PHYSICIAN] - James Bridges MD [Primary Care Provider] -
[2020-05-17 08:56] VITALS: O2SAT 97
[2020-05-17] MEDS: Ipratropium/Albuterol Sulfate 3 ML AMPUL.NEB INHALATION (08:58)
[2020-05-17 09:03] VITALS: PULSE 84; RESP 18
[2020-05-17 09:07] LABS: Absolute Lymphocyte Count 1.36 X10^3/uL (0.83-4.51); Absolute Neutrophil Count 5.4 X10^3/uL (2.0-7.7); Basophil# 0.05 X10^3/uL; Basophil% 0.7 % (0-1); Eosinophil# 0.26 X10^3/uL; Eosinophils% 3.4 % (0-5); Hematocrit 47.5 % (40-54); Hemoglobin 16.1 g/dL (13.0-16.5); Lymphocyte # 1.36 X10^3/ul (4.0); Lymphocyte % 17.8 % (19-41); Mean Corp Hgb Conc 33.9 g/dL (32-36); Mean Corpuscular Hgb 31.7 pg (27.0-32.0); Mean Corpuscular Volume 93.5 fL (80-94); Mean Platelet Vol. 9.4 fl (6.2-12.0); Monocyte# 0.54 X10^3/uL; NRBC Flagged by Analyzer 0 % (0-5); Neutrophil # 5.43 X10^3/uL (2.7-7.7); Neutrophil % 70.8 % (47-70); Platelet Count 310 K/mm3 (150-450); RBC Distribution Width CV 12.1 % (11.6-14.6); RBC Distribution Width SD 41.9 fl (35.1-43.9); Red Blood Count 5.08 M/mm3 (4.6-6.2); White Blood Count 7.7 K/mm3 (4.4-11.0)
[2020-05-17 09:20] LABS: D-Dimer Quantitative (DVT/PE) <= 0.27 FEU/ug/m (0.27-0.49)
--- NOTE | 2020-05-17 09:20 | RAD_ITS ---
STUDY: X-RAY CHEST REASON FOR EXAM: Male, 39 years old. COUGH X1 WEEK, SOB THAT STARTED A COUPLE DAYS AGO. REPORTS ONE EPISODE OF HEADACHE. CHILLS -- HX SARCOIDOSIS TECHNIQUE: Single AP portable view of the chest. COMPARISON: Comparison is made with prior study dated 10/16/2019. FINDINGS: EKG electrodes are seen. Hyperinflation. Stable increased markings in the upper lobes slightly more prominent on the left side suggestive of scarring. There is no demonstrated pleural abnormality. Normal size heart. Normal mediastinum and antoinette. Normal visualized pulmonary arteries. Normal visualized aortic arch and descending thoracic aorta. Normal visualized thoracic spine. Normal visualized ribs, clavicles, and shoulders. There is no demonstrated abnormality of the visualized soft tissue structures of the upper abdomen. RAD/Chest 1 View (Portable) IMPRESSION: Stable examination. Electronically Signed: Deangelo Marcano MD at 9:37 EST , Service support ,
[2020-05-17 09:23] LABS: Anion Gap 5 (5-15); BUN 16 mg/dL (7-18); Calcium,Total 8.9 mg/dL (8.5-10.1); Chloride 104 mmol/L (98-107); Creatinine, Serum 1.14 mg/dL (0.70-1.30); EST Glomerular Filtration Rate 75 mL/min (>60); Est Glom Filt Rate - Afr Amer 91 mL/min (>60); Estimated Creatinine Clearance 99.14 ml/min; Glucose 85 mg/dL (74-106); Potassium 3.9 mmol/L (3.5-5.1); Sodium Level 139 mmol/L (136-145)
[2020-05-17 09:32] VITALS: O2SAT 97
[2020-05-17 10:00] VITALS: PULSE 82; RESP 18
[2020-05-17] MEDS: Albuterol 2.5 MG/3 ML VIAL.NEB. INHALATION ×2 (10:00→10:10)
--- NOTE | 2020-05-17 10:36 | ED.DEP ---
ED Disposition - Plan for ED Patient: Instructions: Pulmonary Sarcoidosis Prescriptions: Prednisone [Deltasone] 40 mg PO DAILY #10 tab Prescription Printed Referrals: James Bridges MD [Primary Care Provider] - Pedro Luis Augustine MD [STAFF PHYSICIAN] -
[2020-05-17] MEDS: predniSONE 20 MG Tablet 40 MG PO (10:51)
[2020-05-17 10:57] VITALS: PULSE 73; RESP 18; O2SAT 94
== END 2020-05-17 10:58 | disposition home or self-care (01) ==
LOC: ED 09:43
PROVIDERS: Emergency Provider Emergency Medicine; PCP Internal Medicine Pulmonary Disease
DX: R06.00 Dyspnea, unspecified (principal); D86.9 Sarcoidosis, unspecified; R05 Cough; R06.02 Shortness of breath; R68.83 Chills (without fever); R07.9 Chest pain, unspecified
CPT/HCPCS: 71045; 80048; 84484; 85025; 85379; 87426; 93005; 94640; 99285; A4216

== ENCOUNTER → 2020-12-27 09:52 | Outpatient (CLI) | payer BC, SELFPAY | PROVIDERS: PCP Internal Medicine Pulmonary Disease; Visit Provider Physician Assistant Surgical | DX: Z11.52 Encounter for screening for COVID-19 (principal) | CPT/HCPCS: 87635; U0005; U0003 ==

== ENCOUNTER → 2021-03-28 16:33 | Outpatient (CLI) | payer BC, SELFPAY ==
--- NOTE | 2021-03-28 16:36 | RAD_ITS ---
STUDY: X-RAY CHEST REASON FOR EXAM: Male, 40 years old. CHEST PAIN WHEEZING TECHNIQUE: XR Chest 2 Views COMPARISON: 2.1. FINDINGS: There is no demonstrated pleural abnormality. Bilateral apical scarring. Normal size heart. Normal mediastinum and antoinette. Normal visualized pulmonary arteries. There is atherosclerotic calcification of the aortic arch with tortuosity. There are diffuse degenerative changes of the visualized thoracic spine. There is degenerative osteoarthritis of the bilateral shoulders. There is no demonstrated abnormality of the visualized soft tissue structures of the upper abdomen. RAD/Chest PA and Lateral IMPRESSION: There are no acute findings. Electronically Signed: Fransico Ryan MD at 18:32 EST , Service support ,
== END ==
PROVIDERS: PCP Internal Medicine Pulmonary Disease; Referring Provider Family Medicine; Visit Provider Family Medicine
DX: R06.2 Wheezing (principal); Z86.2 Personal history of diseases of the blood and blood-forming organs and certain disorders involving the immune mechanism
CPT/HCPCS: 71046

== ENCOUNTER 2023-01-21 10:52 | Emergency (ER) | payer BC, SELFPAY ==
[2023-01-21 10:52] VITALS: BP 144/73; PULSE 68; RESP 20; TEMP 36.3; O2SAT 98; BMI 26.2
--- NOTE | 2023-01-21 11:03 | EDS_ITS ---
<Statement entered by Verona Martínez MD - 01/21/23 13:01> I have personally performed a face to face assessment of the patient and have reviewed the ISAI Note. Patient presents secondary to left ear pain and swelling. He developed a small area of swelling thought to be secondary to a bug bite. He has been on Keflex. He is to have increased swelling. Head neck examination reveals swelling to the outer ear on the left. Small area of crusting. No tenderness or erythema over the mastoid air cells. Patient is already on Keflex. We will add Bactrim for better antibiotic coverage as well as Bactroban ointment. Return instructions given. Patient was advised he can follow-up with ENT across the street as well. HPI History of Present Illness Chief Complaint: Ear Problem Narrative Narrative: Patient was camping and thinks he got bit by mosquito on his left ear because it was really itchy. He scratched it until the skin broke open and it became red and swollen earlier this week. He was seen in urgent care and is on day 4 of Keflex TID without improvement. He is also using triple antibiotic ointment. He denies fever or chills. He has history of sarcoidosis and is on prednisone but denies immunosuppressants. [facility] Medical History (Updated 01/21/23 @ 11:08 by SHIVA Contreras) Back pain Chest pain Migraines Sarcoidosis SOB (shortness of breath) Home Medications prednisone 20 mg tablet 40 mg (2 x 20 mg) PO DAILY #10 tabs 05/17/20 [Rx Last Taken Unknown] azithromycin 250 mg tablet 250 mg PO QDAY #6 tabs 03/01/22 [Rx Last Taken Unknown] mupirocin 2 % topical ointment 1 applic topical BID #15 grams 01/21/23 [Rx Last Taken Unknown] sulfamethoxazole 800 mg-trimethoprim 160 mg tablet (Bactrim DS) 1 tab PO BID 7 days #14 tabs 01/21/23 [Rx Last Taken Unknown] Allergy/AdvReac Type Severity Reaction Status Date / Time acetaminophen [From Percocet] Allergy Hives Verified 02/28/22 13:25 oxycodone HCl [From Percocet] Allergy Hives Verified 02/28/22 13:25 Social History Smoking Status: Former smoker alcohol intake: never ROS ROS ED ROS Narrative Constitutional: Negative for fever, chills, malaise. ENT: Positive for ear pain. Neuro: Negative for headache. Skin: Positive for rash. EXAM Physical Exam Narrative Exam Narrative: CONST: Patient sitting in no acute distress. EYES: Normal inspection. ENT: Left auricle edematous with erythema and crusting. No fluctuance or crepitus. Normal TM. No mastoid swelling tenderness or erythema. NECK: Normal inspection. RESP: No respiratory distress, CTAB. CVS: Regular rate and rhythm, no murmur, no gallop. SKIN: Color normal, no rash, warm, dry, intact. EXTREMITIES: Normal appearance, no pedal edema. NEURO: Oriented x4. PSYCH: Normal affect. Const Vital Signs: 01/21/23 10:52 Temperature 97.3 F L Temperature Source Temporal Pulse Rate 68 Respiratory Rate 20 H Blood Pressure 144/73 H Blood Pressure Mean 96 Pulse Ox 98 Oxygen Delivery Method Room Air MDM MDM MDM Narrative Medical decision making narrative: Patient has cellulitis of his left auricle but not improving on Keflex. He appears well and nontoxic and is afebrile with normal vital signs. Left auricle is red, edematous, and has small amount of crusting. TM appears normal. There are no signs of mastoiditis. I will prescribe Bactrim and mupirocin ointment to take in addition to Keflex he is already on. I discussed return precautions and he was discharged in stable condition. Discharge Plan Triage Chief Complaint: Ear Problem ED Midlevel Provider: Vandana Shafer ED Provider: Verona Martínez Dx/Rx/DC Orders Clinical Impression: Cellulitis of auricle of left ear Instructions: Cellulitis Dc Prescriptions: New sulfamethoxazole-trimethoprim [Bactrim DS] 800-160 mg tablet 1 tab PO BID 7 Days Qty: 14 0RF mupirocin 2 % ointment 1 applic topical BID Qty: 15 0RF No Action prednisone 20 MG tablet 40 mg PO DAILY Qty: 10 0RF Rx Instructions: With food azithromycin 250 mg tablet 250 mg PO QDAY Qty: 6 0RF Rx Instructions: 2 tablets today, then 1 tablet daily on days 2 through 5 Primary Care Provider: James Bridges Referrals: James Bridges MD [Primary Care Provider] - Disposition Disposition: Home, Self Care
[2023-01-21] MEDS: Smz/Tmp Ds Tablet 1 TABLET PO (11:28)
== END 2023-01-21 11:31 | disposition home or self-care (01) ==
LOC: ED 11:25
PROVIDERS: Emergency Provider Emergency Medicine; PCP Family Medicine; Visit Provider Emergency Medicine
DX: H60.12 Cellulitis of left external ear (principal); Z87.891 Personal history of nicotine dependence
CPT/HCPCS: 99282